=== PATIENT | female | born 1985 | race African-American/Black ===

== ENCOUNTER 2016-09-14 21:42 | Emergency (ER) | payer SELFPAY ==
[~2016-09-14] VITALS: Ht 162.6 cm; Wt 85.7 kg
[~2016-09-14 21:42] MED LIST: BENADRYL50 MG ORAL; PREDNISONE20 MG ORAL
--- NOTE | 2016-09-14 22:09 | Emergency Room Report ---
History of Present Illness General Chief Complaint: Female Urogenital Problems Source: Patient Present Illness HPI This is a 31-year-old female with no past history. She presents with chief complaint of possible STD. She's been celibate for a year. She got back with her ex-boyfriend has sexual intercourse. She found out that he was using heroine and sleeping with prostitutes. She developed vaginal itching and discharge. She saw her doctor and was given Diflucan and Monistat. She said Pap smear was negative. Symptom did not go away. She read online that garlic has antibacterial property. She place a garlic and vagina 2 days ago. Since then she's unable to find it. She denies any fever chills denies any nausea vomiting. No other complaint. Allergies: Coded Allergies: No Known Allergies (Unverified , 10/08/14) Patient History Past Medical History: none, see triage record, old chart reviewed Past Surgical History: none Pertinent Family History: none Social History: Denies: smoking Last Menstrual Period: 08/25/16 Now: No Immunizations: other Reviewed Nursing Documentation: PMH: Agreed, PSxH: Agreed Nursing Documentation-PMH Past Medical History: No History, Except For Review of Systems Eye: Denies: blurred vision, eye pain ENT: Denies: ear pain, nose congestion, throat swelling Respiratory: Denies: cough, shortness of breath Cardiovascular: Denies: chest pain, palpitations Gastrointestinal: Denies: abdominal pain, diarrhea, nausea, vomiting Genitourinary: Reports: discharge Musculoskeletal: Denies: back pain, joint pain Skin: Denies: rash Neurological: Denies: headache, numbness Endocrine: Denies: increased thirst, increased urine Hematologic/Lymphatic: Denies: easy bruising All Other Systems: negative except mentioned in HPI Physical Exam Vital Signs Date Time Temp Pulse Resp B/P Pulse Ox O2 Delivery O2 Flow Rate FiO2 09/14/16 21:47 97.0 84 16 124/76 100 Room Air vitals normal Sp02 EP Interpretation: reviewed, normal General Appearance: well appearing, no apparent distress, alert Head: normocephalic, atraumatic Eyes: bilateral eye EOMI, bilateral eye PERRL ENT: hearing grossly normal, normal pharynx Neck: full range of motion, supple, no meningismus Respiratory: chest non-tender, lungs clear, normal breath sounds Cardiovascular #1: regular rate, rhythm, no murmur Gastrointestinal: normal bowel sounds, non tender, no mass, no organomegaly, no bruit, non-distended Genitourinary: other - pelvic done with RN Kathe as coupon clerk. copious amt of yellowish dc. No FB. No CMT. Normal adnexa. Musculoskeletal: back normal, gait/station normal, normal range of motion Neurologic: alert, oriented x3 Psychiatric: mood/affect normal Skin: warm/dry Medical Decision Making Diagnostic Impression: Primary Impression: Acute cervicitis Additional Impressions: Trichomonal vaginitis Bacterial vaginosis ER Course Patient with a vaginal discharge. She has STD and bacterial vaginosis. She also cover for gonorrhea Chlamydia. We'll discharge home. Recommend outpatient testing for HIV, hepatitis, syphilis and other STDs. Last Vital Signs Date Time Temp Pulse Resp B/P Pulse Ox O2 Delivery O2 Flow Rate FiO2 09/14/16 21:47 97.0 84 16 124/76 100 Room Air Status: improved Disposition: HOME, SELF-CARE Condition: Stable Scripts Metronidazole* (FLAGYL*) 500 Mg Tablet 500 MG ORAL BID, #14 TAB Prov: ЕКАТЕРИНА MOTT M.D. 09/14/16 Additional Instructions: Followup with your DrRonald in 7 days. Recommend outpatient testing for HIV, hepatitis, syphilis and other STDs. Return if symptom worsen. ЕКАТЕРИНА MOTT M.D. Sep 14, 2016 22:09
[2016-09-14] MEDS ORDERED: Azithromycin 250mg tab ORAL ONE (22:15)
[2016-09-14 22:22] VITALS: BP 124/76
[2016-09-14 23:12] LABS: APPEARANCE,URINE CLEAR; KETONES,URINE NEGATIVE (NEGATIVE); LEUKOCYTE ESTERASE ,URINE 3+ (NEGATIVE); NITRITE,URINE NEGATIVE (NEGATIVE); PH,URINE 6 (4.5-8.0); PROTEIN,URINE NEGATIVE (NEGATIVE); UROBILINOGEN,URINE NORMAL MG/DL (0.0-1.0)
[2016-09-14 23:13] LABS: BACTERIA,URINE MODERATE /HPF; SQUAMOUS EPITHELIAL CELL,UR FEW /LPF (NONE/OCC)
[2016-09-14] MEDS ORDERED: METRONIDAZOLE500 MG ORAL (23:14)
[2016-09-14 23:21] VITALS: BP 120/74
[2016-09-14 23:22] VITALS: BP 120/74
== END 2016-09-14 23:27 | disposition home or self-care (01) ==
LOC: EMR 22:04
DX: N72 Inflammatory disease of cervix uteri (principal); A59.01 Trichomonal vulvovaginitis
CPT/HCPCS: 81003; 81025; 87086; 87181; 87210; J0696; 96372; 99283